=== PATIENT | female | born 2000 | race Caucasian/White ===

== ENCOUNTER 2024-03-21 16:03 | Inpatient (IN) | payer BC, MEDICAID, SELFPAY ==
[2024-03-21] VITALS (67 sets, daily range): BP systolic 0–176; BP diastolic 0–112; PULSE 74–134; RESP 18–20; TEMP 36.6–36.8; O2SAT 87–100; BMI 33.9
[2024-03-21 17:08] LABS: Basophils % (Auto) 0 % (0-2.5); Eosinophils % (Auto) 0 % (0-10); Hematocrit 36.8 % (36.0-46.0); Hemoglobin 12.8 g/dL (12.0-16.0); Immature Granulocytes % (Auto) 1 % (0-0); Immature Granulocytes Auto 0.08 Thou/mm3 (0.00-0.00); Lymphocytes # (Auto) 2.4 Thou/mm3 (1.0-4.8); Lymphocytes % (Auto) 23 % (10-50); Mean Corpuscular HGB Conc 34.8 g/dl (31.0-37.0); Mean Corpuscular Hemoglobin 30.8 pg (25.0-35.0); Mean Corpuscular Volume 89 fL (80-100); Monocytes # (Auto) 0.7 Thou/mm3 (0.0-0.8); Monocytes % (Auto) 7 % (0-12); Neutrophils # (Auto) 7.1 Thou/mm3 (1.8-7.7); Neutrophils % (Auto) 69 % (37-80); Nucleated Red Blood Cell % 0 /100 WBC (0); Platelet Count 222 Thou/mm3 (140-440); RDW Standard Deviation 45.9 fL (36.4-46.3); Red Blood Count 4.16 Miln/mm3 (4.00-5.20); White Blood Count 10.3 Thou/mm3 (3.6-11.0)
[2024-03-21] MEDS: SODIUM CHLORIDE 0.9% 1000 ML 1,000 ML 100 ML IV (17:25)
[2024-03-21 17:49] LABS: Syphilis Nonreactive (Nonreactive)
--- NOTE | 2024-03-21 18:24 | ESHP_ITS ---
Documentation for date of: 03/21/24 OB Labor/Induct. HPI History of Present Illness Chief complaint: 23 y/o 41w 3d presents to L&D in active labor at 6cm : 3 Para: 2 Term pregnancies: 1 pregnancies: 1 Living children: 1 History of Abortions: Spontaneous and Elective: 0 History of Vaginal deliveries: 2 History of sections: No History of : No Date of last menstrual period: 06/05/23 HELIO: 03/11/24 Gestational Age (weeks): 41 Gestational Age (days): 3 Gestational age based on last menstrual period: 41 History of present illness: 23 y/o 41w 3d presents to L&D in active labor at 6cm, vertex, SROM, thick mec. 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 Blood type is O neg, received RhoGAM at 28 weeks and Rubella NI, EFW 3400g History of Present Dating criteria: based on LMP only Adequate Care: Yes Ultrasounds: normal 1st trimester US and normal mid trimester US Obstetrical complications: none Medical complications: none Labs Maternal Blood Type: O Neg Labs: Negative: RPR, Hepatitis B, Rubella Titre, HIV, Chlamydia, Gonorrhea and Group Beta Strep and Unknown: Herpes Type 1, Herpes Type 2 and Covid-19 Review of Systems Review of Systems Systems Reviewed: All systems reviewed, normal except as documented Past Medical History Surgical History SURGICAL: Negative Section Meds Home Medications and Allergies Allergies Allergy/AdvReac Type Severity Reaction Status Date / Time No Known Allergies Allergy Verified 06/20/23 20:51 OB Exam Physical Exam Vital signs: Temp Pulse Resp BP Pulse Ox 97.8 F 100 18 0/0 L 100 03/21/24 17:50 03/21/24 18:01 03/21/24 17:50 03/21/24 18:14 03/21/24 18:19 Constitutional Constitutional: no acute distress Routine HEENT Exam Head: Present normocephalic and atraumatic Eye: Present EOMI, PERRL and normal accommodation ENT: Present mucous membranes moist Routine Neck Exam Neck: Present supple and trachea midline Routine Respiratory Exam Respiratory: Absent respiratory distress Routine Cardiovascular Exam Cardiovascular: Present RRR Routine Abdominal Exam Abdominal: Present soft and normoactive bowel sounds Routine Exam External: Present normal urethra appearance; Absent lesions Detailed Labor and Delivery Exam Dilation (cm): 6 Effacement (%): 90 Cervix position: mid station: 0 Consistency: soft Presentation: Vertex Membranes: ruptured (SROM) Amniotic fluid: thick meconium Baseline heart rate: 130 monitor accelerations: 15x15 monitor decelerations: None extermination inspector variability: Moderate (11-25) Contraction frequency (min): 2-3 Routine Extremities Exam Extremities: Present full ROM Routine Back/Spine/Pelvis Exam Back/Spine: Present full ROM Routine Skin Exam Skin: Present intact, dry and warm Routine Neurological Exam Neurological: Present alert, oriented X3 and CN II-XII intact Routine Psychiatric Exam Psychiatric: Present normal affect and normal thought process OB Results Labs 03/21/24 16:45 Labs: Short CBC 03/21/24 Range/Units 16:45 WBC 10.3 (3.6-11.0) Thou/mm3 Hgb 12.8 (12.0-16.0) g/dL Hct 36.8 (36.0-46.0) % Plt Count 222 (140-440) Thou/mm3 OB Assessment & Plan Assessment and Plan (1) Normal labor: Status: Acute (2) 41 weeks gestation of : Status: Acute Additional Plan Induction method: none Plan: anticipate NVD and consult MD brown Additional Plan Comment: Routine admit orders Consult anesthesia for an epidural
[2024-03-21 18:41] LABS: Hepatitis C Antibody Non Reactive (Non React)
[2024-03-21] MEDS: MINERAL OIL 30 ML UDC TOP ×2 (18:56→19:26)
[2024-03-21] MEDS: OXYTOCIN in NS 20 units 20 UNIT/1,000 ML BAG 125 UNIT IV (18:56)
[2024-03-21] MEDS: TRANEXAMIC ACID 1,000 MG IVPB 1,000 MG/100 ML BAG 200 MG IV ×2 (19:10→20:25)
--- NOTE | 2024-03-21 19:16 | OBDSUM_ITS ---
Data ([place]) Data Hx Section: No Maternal Blood Type: O Neg Rubella Titre: Negative RPR: Non-reactive Labs: Negative: RPR, Hepatitis B, HIV, Chlamydia, Gonorrhea and Group Beta Strep and Unknown: Herpes Type 1 and Herpes Type 2 : 3 Para: 2 Term: 1 : 1 Livin : 0 Delivery Data ([place]) Labor Data Stimulated/Augmented: No Induction: No ROM Date: 03/21/24 ROM Time: 15:30 Rupture Type: SROM Amniotic Fluid: Thick Meconium Delivery Data EDC: 03/11/24 EDC calculated by:: LMP Labor Onset Stage 1 Date: 03/21/24 Labor Onset Stage 1 Time: 15:30 Labor Onset Stage 2 Date: 03/21/24 Labor Onset Stage 2 Time: 18:36 Delivery Date: 03/21/24 Delivery Time: 18:52 Gestational age (weeks): 41 Gestational age (days): 3 Placenta Delivery Date: 03/21/24 Placenta Delivery Time: 18:58 Delivered by: Kadie Short Delivery nurse: Devora Hernandez Programming Development Project Manager at delivery: No Support person(s) at delivery: FOB Delivery Method Delivery: Vaginal Delivery Type: Spontaneous Presentation: Vertex Position: OA Anesthesia Type Primary Anesthesia: Epidural Delivery Room Medications Other Intrapartum Medications: No Post Delivery Medications N/A: No Placenta Placenta Delivery: Spontaneous Placenta Cultures Obtained: No Placenta Sent for Examination: No Cord Sample: Cord Blood Obtained Episiotomy Episiotomy: None EBL Estimated blood loss (ml): 400 Umbilical Cord Umbilical Vessels: 3 Nuchal Cord: Not Applicable Body Cord: Not Applicable Additional Procedures Patient came in at 6 cm and progressed very quickly to 8 cm and received an epidural. Then was quickly changed to complete. After 2 pushes had an of a viable female infant. 's anterior shoulder delivered with gentle downward traction subsequent deliver the posterior shoulder and the body without complications. placed on mother's abdomen. Vigorous cry upon delivery. Cord was clamped. Cut by FOB. Cord blood obtained. Three-vessel cord noted. Placenta expelled spontaneously and intact. No lacerations noted. Perineum intact. Patient did have considerable amount of bleeding and manual removal of clots from the uterus was necessitated. Excellent hemostasis achieved after vigorous fundal massage and removal of clots from the posterior fornix. EBL 400. Sponge and needle count correct. Mother and baby stable, skin to skin and bonding in LDR. Patient will receive 1 dose of Ancef 2 g. [place] Data ([place]) Data Gender: Female Infant Weight Grams: 3370 1 Minute Total: 8 5 Minute Total: 9
[2024-03-21] MEDS: BENZO/LANO/ALOE (Dermoplast) 60 GM CAN 1 SPRAY TOP (19:26)
[2024-03-21] MEDS: DIPHENOXYLATE/ATROP SULF 1 TAB PO (19:42)
[2024-03-21] MEDS: CARBOPROST TROMETH INJ 250 MCG/ML VIAL IM (19:42)
[2024-03-21] MEDS: ONDANSETRON INJ 2 MG/ML INJ 2 ML 8 MG IV (20:06)
[2024-03-21] MEDS: LABETALOL 100 MG TABLET 200 MG PO (21:31)
[2024-03-21 22:07] LABS: Amphetamine/Metham Scrn,Ur OB Negative (Negative); Benzoylecgonine Screen, Ur OB Negative (Negative); Opiate Screen,Urine OB Negative (Negative); THC Screen,Urine OB Negative (Negative)
--- NOTE | 2024-03-21 22:09 | PC.NURSE ---
0: RN AT BEDSIDE, PATIENT UNABLE TO AMBULATE TO BATHROOM DUE TO INCREASED BLOOD PRESSURES. PATIENT PLACED ON BEDPAN.
--- NOTE | 2024-03-21 22:12 | PC.NURSE ---
2044: BEDPAN REMOVED, PATIENT UNABLE TO VOID. PERICARE DONE. VAGINAL BLEEDING SCANT. NO CLOTS NOTED.
--- NOTE | 2024-03-21 22:15 | PC.NURSE ---
5: PATIENT TRANSFERED TO VIA WHEELCHAIR. PATIENT TOLERATED WELL.
--- NOTE | 2024-03-21 22:16 | PC.NURSE ---
2152: Jorgito MANN CNM CALLED REGARDING NO ORDERS IN CHART. ORDERS RECEIVED FOR ROUTINE ORDERS. CNM ALSO MADE AWARE TOTAL EBL FOR RECOVERY PERIOD 756ML. CURRENT STATUS IS FUNDUS FIRM WITH SCANT BLEEDING, PATIENT ASYMPTOMATIC. CNM MADE AWARE MD INFORMED OF BLOOD PRESSURE TREND. CNM ORDERS RECIEVED TO ADD CBC FOR NOW IN ADDITION TO MORNING CBC.
[2024-03-21 22:49] LABS: Basophils % (Auto) 0 % (0-2.5); Eosinophils % (Auto) 0 % (0-10); Hematocrit 32.3 % (36.0-46.0); Immature Granulocytes % (Auto) 1 % (0-0); Immature Granulocytes Auto 0.15 Thou/mm3 (0.00-0.00); Lymphocytes % (Auto) 6 % (10-50); Mean Corpuscular HGB Conc 34.1 g/dl (31.0-37.0); Mean Corpuscular Hemoglobin 30.7 pg (25.0-35.0); Mean Corpuscular Volume 90 fL (80-100); Monocytes # (Auto) 0.7 Thou/mm3 (0.0-0.8); Monocytes % (Auto) 4 % (0-12); Neutrophils % (Auto) 89 % (37-80); Nucleated Red Blood Cell % 0 /100 WBC (0); Platelet Count 196 Thou/mm3 (140-440); RDW Standard Deviation 46.5 fL (36.4-46.3); Red Blood Count 3.58 Miln/mm3 (4.00-5.20); White Blood Count 16.9 Thou/mm3 (3.6-11.0)
[2024-03-21] MEDS: ceFAZolin/D5W 2 GM IV 2 GM/100 ML BAG IV (23:12)
[2024-03-22] VITALS: BP 99/64; PULSE 93; RESP 18; TEMP 37; O2SAT 96
[2024-03-22 04:00] VITALS: BP 102/67; PULSE 105; RESP 18; TEMP 36.9; O2SAT 96
[2024-03-22 05:36] LABS: Basophils % (Auto) 0 % (0-2.5); Eosinophils % (Auto) 0 % (0-10); Hematocrit 26.3 % (36.0-46.0); Hemoglobin 9.1 g/dL (12.0-16.0); Immature Granulocytes % (Auto) 1 % (0-0); Immature Granulocytes Auto 0.08 Thou/mm3 (0.00-0.00); Lymphocytes # (Auto) 1.7 Thou/mm3 (1.0-4.8); Lymphocytes % (Auto) 11 % (10-50); Mean Corpuscular HGB Conc 34.6 g/dl (31.0-37.0); Mean Corpuscular Hemoglobin 30.8 pg (25.0-35.0); Mean Corpuscular Volume 89 fL (80-100); Monocytes # (Auto) 0.7 Thou/mm3 (0.0-0.8); Monocytes % (Auto) 4 % (0-12); Neutrophils # (Auto) 12.7 Thou/mm3 (1.8-7.7); Neutrophils % (Auto) 84 % (37-80); Nucleated Red Blood Cell % 0 /100 WBC (0); Platelet Count 190 Thou/mm3 (140-440); RDW Standard Deviation 46.3 fL (36.4-46.3); Red Blood Count 2.95 Miln/mm3 (4.00-5.20); White Blood Count 15.1 Thou/mm3 (3.6-11.0)
--- NOTE | 2024-03-22 06:22 | PC.NURSE ---
03/22/24 0620: Called [facility] Kadie Short to update on am cbc results, Hgb, hct, and pulse . Pt is still asymptomatic. No new orders received.
--- NOTE | 2024-03-22 07:18 | ESDS_ITS ---
DS: Providers Provider Date of admission: 03/21/24 16:35 Primary care physician: Physician No Primary/Family Admitting Provider: Kale Torres MD Attending Provider on Admission: Kale Torres MD Attending Provider on DC: Kadie Short CNM Discharging Provider: Kadie Short CNM Anticipated date of discharge: 03/22/24 DS: Diagnosis Discharge Diagnosis (1) Normal spontaneous vaginal delivery: Status: Acute (2) Encounter for care of lactating mother: Status: Acute (3) Rh negative, delivered, current hospitalization: Status: Acute (4) Rubella nonimmune status, delivered, current hospitalization: Status: Acute (5) 41 weeks gestation of : Status: Acute (6) Normal labor: Status: Acute Problem List Completed Was Problem List Reviewed/Reconciled?: Yes Summary/Hosp Course Brief History: 23 y/o 41w 3d presents to L&D in active labor at 6cm, vertex, SROM, thick mec. 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 Blood type is O neg, received RhoGAM at 28 weeks and Rubella NI, EFW 3400g. 03/21/24: Patient came in at 6 cm and progressed very quickly to 8 cm and received an epidural. Then was quickly changed to complete. After 2 pushes had an of a viable female infant. Infant's anterior shoulder delivered with gentle downward traction subsequent deliver the posterior shoulder and the body without complications. placed on mother's abdomen. Vigorous cry upon delivery. Cord was clamped. Cut by FOB. Cord blood obtained. Three-vessel cord noted. Placenta expelled spontaneously and intact. No lacerations noted. Perineum intact. Patient did have considerable amount of bleeding and manual removal of clots from the uterus was necessitated. Excellent hemostasis achieved after vigorous fundal massage and removal of clots from the posterior fornix. EBL 400. Sponge and needle count correct. Mother and baby stable, skin to skin and bonding in LDR. Patient will receive 1 dose of Ancef 2g. day 1. Patient is stable and afebrile. Doing well. Denies dizziness shortness of breath. Breast-feeding . Bonding well. Uterus is nontender fundus firm and minimal lochia. Discharge instructions given. Patient to follow-up with Kadie Short CNM in 3 weeks Peripartum Data Delivery Method: Normal Vaginal Delivery Episiotomy Description: None Laceration Description: no complications: none [place] 1: Gender: Female Disposition of : home Status at Discharge Cognitive/behavioral status at discharge: Alert and oriented x 3 Functional status at discharge: independent ambulation Overall status at discharge: patient is progressing back to baseline Time Spent with Patient Time attestation: Total time spent providing and/or coordinating discharge services: Time spent: Greater than 30 minutes Exam Vital Signs Temp Pulse Resp BP Pulse Ox 97.8 F 126 H 18 149/97 H 87 L 03/21/24 17:50 03/21/24 19:09 03/21/24 17:50 03/21/24 19:09 03/21/24 18:52 Constitutional Constitutional: no acute distress Routine HEENT Exam Head: Present normocephalic and atraumatic Eye: Present EOMI, PERRL and normal accommodation ENT: Present mucous membranes moist Routine Neck Exam Neck: Present supple, full ROM and trachea midline Routine Respiratory Exam Respiratory: Present chest non-tender, lungs clear, normal breath sounds and no resp distress Routine Cardiovascular Exam Cardiovascular: Present RRR Routine Abdominal Exam Abdominal: Present soft and normoactive bowel sounds; Absent tenderness or distended Comments: Uterus nontender fundus firm Routine Exam Patient deferred: external exam Routine Extremities Exam Extremities: Present full ROM, pulses intact and normal capillary refill; Absent calf tenderness or tenderness Routine Back/Spine/Pelvis Exam Back/Spine: Present full ROM Routine Skin Exam Skin: Present intact, dry and warm Routine Neurological Exam Neurological: Present alert, oriented X3 and CN II-XII intact Routine Psychiatric Exam Psychiatric: Present normal affect and normal thought process Discharge Plan Plan Patient Disposition: HOME (Self Care) Patient condition on transfer: Stable Prescriptions/Referrals Prescriptions/Med Rec: No Action No Known Home Medications Referrals: No Primary/Family,Physician [Primary Care Provider] - Patient/Caregiver Discharge Instructions Meds to Beds: No Discharge Activity: activity as tolerated Other Discharge Activity Instructions:: Follow-up with Kadie Short CNM in 3 weeks Education Materials: After a Vaginal , : Caring for Yourself Print Language: Congolese Stand Alone Forms: Robina Award Info., Patient Portal Info Letter Discharge Order Discharge Orders: Discharge (Routine); Ordered 11/20/24 Ordered By: Kadie Short Planned Discharge Date 03/22/24
[2024-03-22 07:25] VITALS: BP 127/68; PULSE 102; RESP 18; TEMP 36.8; O2SAT 96
[2024-03-22 09:42] LABS: Chlamydia trachomatis PCR Negative (Not Detect); Neisseria Gonorrhoeae DNA PCR Negative (Not Detect); Trichomonas Negative (Negative)
[2024-03-22 11:43] VITALS: BP 99/61; PULSE 97; RESP 16; TEMP 36.9; O2SAT 97
[2024-03-22 15:50] VITALS: BP 106/65; PULSE 92; RESP 19; TEMP 36.8; O2SAT 97
[2024-03-22 20:30] VITALS: BP 129/87; PULSE 87; RESP 17; TEMP 37.1; O2SAT 96
== END 2024-03-22 22:02 | disposition home or self-care (01) | DRG 807 ==
LOC: S4SX 19:16 → S4NX 22:26
PROVIDERS: Nurse Practitioner Women's Health; Admitting Provider Obstetrics & Gynecology; Visit Provider Obstetrics & Gynecology
DX: O48.0 Post-term pregnancy (principal); Z37.0 Single live birth; Z3A.41 41 weeks gestation of pregnancy; O77.0 Labor and delivery complicated by meconium in amniotic fluid; O26.893 Other specified pregnancy related conditions, third trimester; Z67.41 Type O blood, Rh negative
CPT/HCPCS: 36415; 59025; 59409; 80307; 85025; 86780; 86803; 86850; 86900; 86901; 87491; 87591; 87661; 94762; J0689; J2405; J2590; J2795; J3010; J3490; J7030; A9270; J0690